=== PATIENT | female | born 1980 | race Caucasian/White ===

== ENCOUNTER 2018-01-11 13:45 | Emergency (ER) | payer BC, OTHER ==
[2018-01-11 13:53] VITALS: BP 128/79; PULSE 59; TEMP 98.6; BMI 25.8
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
== END 2018-01-11 14:55 | disposition home or self-care (01) ==
LOC: JERFT 13:45
DX: S10.83XA Contusion of other specified part of neck, initial encounter (principal); V43.52XA Car driver injured in collision with other type car in traffic accident, initial encounter; W22.11XA Striking against or struck by driver side automobile airbag, initial encounter; Y92.414 Local residential or business street as the place of occurrence of the external cause; Y93.89 Activity, other specified; Y99.8 Other external cause status
CPT/HCPCS: 99281-25